=== PATIENT | male | born 1960 | race Native Hawaiian/Other Pacific Islander ===

== ENCOUNTER 2018-01-09 20:43 | Emergency (ER) | payer OTHER ==
[~2018-01-09] VITALS: Ht 175.3 cm; Wt 75.8 kg
[2018-01-09] MEDS ORDERED: LISI10TA11 PO (21:39)
[2018-01-09] MEDS ORDERED: DICL1GEL2 TOP (21:40)
[2018-01-09] MEDS ORDERED: CYCL10TA35 PO (21:40)
[2018-01-09] MEDS ORDERED: OXYCONTIN30 MG PO (21:40)
[2018-01-09] MEDS ORDERED: LYRICA50 MG PO (21:41)
[2018-01-09] MEDS ORDERED: NITROGLYCERIN0.4 MG SL (21:41)
[2018-01-09] MEDS ORDERED: CLOP75TA2 PO (21:41)
[2018-01-09] MEDS ORDERED: TAMS0.4C PO (21:42)
[2018-01-09] MEDS ORDERED: VICTOZA18 MG/3 ML SC (21:43)
[2018-01-09] MEDS ORDERED: ASPI-93 PO (21:43)
[2018-01-09] MEDS ORDERED: HYDR10TA47 PO (21:44)
[2018-01-09] MEDS ORDERED: ATEN50TA36 PO (21:44)
[2018-01-09] MEDS ORDERED: GLIP10TA55 PO (21:44)
[2018-01-09] MEDS ORDERED: LIPITOR10 MG PO (21:44)
[2018-01-09] MEDS ORDERED: PARAFON FORT PO (21:45)
[2018-01-09] MEDS ORDERED: METFORMIN HYDR500 MG PO (21:45)
[2018-01-09 22:58] VITALS: BP 132/73; TEMP 98.4
== END 2018-01-09 22:59 | disposition home or self-care (01) ==
LOC: ED 20:43
DX: M54.5 Low back pain (principal); G89.29 Other chronic pain
CPT/HCPCS: 96372; 99283; J1885; J2360

== ENCOUNTER 2019-05-20 13:33 | Emergency (ER) | payer OTHER ==
[~2019-05-20] VITALS: Ht 175.3 cm; Wt 75.8 kg
[~2019-05-20 13:33] MED LIST: ASPI-93 PO; ATEN50TA36 PO; CLOP75TA2 PO; CYCL10TA35 PO; DICL1GEL2 TOP; GLIP10TA55 PO; HYDR10TA47 PO; LIPITOR10 MG PO; LISI10TA11 PO; LYRICA50 MG PO; METFORMIN HYDR500 MG PO; NITROGLYCERIN0.4 MG SL; OXYCONTIN30 MG PO; PARAFON FORT PO; TAMS0.4C PO; VICTOZA18 MG/3 ML SC
[2019-05-20 14:44] LABS: PLATELET COUNT 256 K/uL (142-355)
[2019-05-20 14:53] LABS: POTASSIUM 4.2 mmol/L (3.6-5.2)
[2019-05-20 17:03] VITALS: BP 135/91; TEMP 98
== END 2019-05-20 17:08 | disposition home or self-care (01) ==
LOC: ED 13:33
PROVIDERS: Family Medicine
DX: M51.36 Other intervertebral disc degeneration, lumbar region (principal); G89.4 Chronic pain syndrome; W18.39XA Other fall on same level, initial encounter; Y92.89 Other specified places as the place of occurrence of the external cause
CPT/HCPCS: 80053; 85027; 96372; 99283; J1885

== ENCOUNTER 2023-04-15 09:00 | Emergency (ER) | payer OTHER ==
[~2023-04-15] VITALS: Ht 175.3 cm; Wt 68.9 kg
[2023-04-15 09:06] VITALS: BP 106/70; TEMP 98.8
== END 2023-04-15 09:52 | disposition home or self-care (01) ==
LOC: ED 09:00
DX: S91.331A Puncture wound without foreign body, right foot, initial encounter (principal); S90.811A Abrasion, right foot, initial encounter; W22.8XXA Striking against or struck by other objects, initial encounter
CPT/HCPCS: 90471; 90715; 99282